=== PATIENT | female | born 2000 | race African-American/Black ===

== ENCOUNTER 2022-05-02 08:13 | Outpatient (CLI) | payer OTHER, SELFPAY ==
--- NOTE | ~2022-05-02 | MR_ITS ---
EXAMINATION: MR brain/brain stem wo/w con DATE: 05/02/2022 09:35 INDICATION: Seizure. TECHNIQUE: Magnetic resonance imaging (MRI) of the brain and brainstem was performed without and with 10 mL MultiHance intravenous contrast. COMPARISON: Head CT 01/08/2018 FINDINGS: The hippocampi are normal and symmetric. There is no intracranial hemorrhage, acute infarct ion, or abnormal intracranial mass lesion. The ventricles are normal in size. The orbits are normal. The paranasal sinuses are clear. The mastoid air cells are normal. IMPRESSION: 1. Normal brain. Reviewed, dictated and finalized at location A. IMPRESSION: 1. Normal brain.
[2022-05-02 08:59] LABS: Estimated Glomerular Filt Rate > 60
--- NOTE | 2022-05-03 08:51 | WPDNEUROLOGY ---
Neurology EEG Report General Information Date of Study: 05/02/22 TEST eeg DIAGNOSIS seizure CONDITION OF RECORDING awake ,drowsy and sleep EEG NUMBER [id number] CLINICAL HISTORY patient reports she had 1 seizure about 4 years ago and has not had any problems since then. EEG DESCRIPTION Basic resting occipital frequency consists of low to medium voltage 8 to 10 hertz per 2nd alpha activity. Low-voltage beta activity seen diffusely admixed with waxing and waning posterior alpha rhythm. Bilateral symmetrical sleep activity seen during sleep. Hyperventilation not done. Photic stimulation produces normal drive. Non paroxysmal. Nonfocal. Non lateralizing. IMPRESSION Normal record
== END 2022-05-02 08:14 | disposition home or self-care (01) ==
PROVIDERS: PCP Family Medicine; Visit Provider Psychiatry & Neurology Neurology
DX: R56.9 Unspecified convulsions (principal)
CPT/HCPCS: 70553; 95816; A9577

== ENCOUNTER → 2023-09-22 12:44 | Outpatient (CLI) | payer OTHER, SELFPAY ==
--- NOTE | ~2023-09-22 | US_ITS ---
EXAMINATION: US OB <= 14 weeks fetus DATE: 09/22/2023 13:07 INDICATION: with inconclusive viability. TECHNIQUE: Real-time transabdominal pelvic ultrasound was performed. COMPARISON: None. FINDINGS: The uterus measures 10.2 x 8.2 x 5.7 cm. There is an intrauterine gestational sac. The crown ru mp length measures 4.8 cm, which correlates with an estimated gestational age of 11 weeks and 4 day(s ) (+/-) 1 week(s) and 0 day(s). heart motion is identified measuring 163 beats per minute (bpm) by M-mode Doppler. The placenta is posterior. The ovaries are not visualized. There is no free fluid in the pelvis. IMPRESSION: 1. Single living intrauterine gestation with estimated date of delivery of 04/08/2024. Reviewed, dictated and finalized at location A. [employer] IMPRESSION: 1. Single living intrauterine gestation with estimated date of delivery of 03/23.
== END ==
PROVIDERS: PCP Registered Nurse; Visit Provider Registered Nurse
DX: O36.80X0 Pregnancy with inconclusive fetal viability, not applicable or unspecified (principal); Z3A.00 Weeks of gestation of pregnancy not specified
CPT/HCPCS: 76801

== ENCOUNTER 2023-12-17 13:50 | Emergency (ER) | payer OTHER, SELFPAY ==
--- NOTE | ~2023-12-17 | XR_ITS ---
EXAMINATION: XR chest 1V portable Exam Date/Time: 12/17/2023 16:20 [employer] HISTORY: right rib/CHEST pain X 3 WKS. 20 WKS Comparison: None. RESULT: Lines, tubes, and devices: None. Lungs and pleura: Clear. Cardiomediastinal silhouette: Normal. Other: No acute osseous or upper abdominal finding. IMPRESSION: No acute cardiopulmonary process. Reviewed, dictated and finalized at location K. S [facility]
[2023-12-17 13:53] VITALS: BP 119/68; PULSE 82; RESP 16; TEMP 36.3; O2SAT 100
--- NOTE | 2023-12-17 16:17 | ED.GENADULT ---
HPI - General Adult General Chief complaint: Unspecified Stated complaint: pain behind right ribs Time Seen by Provider: 12/17/23 14:48 History of Present Illness HPI narrative: 23-year-old female presenting to the emergency department for evaluation of right-sided rib pain. Patient is BRCA 24 weeks . Patient states she is having right lower rib pain that is worsened when she is laying or sitting down but symptoms improved when she stands. Patient denies any lower abdominal pain. Patient denies any uterine cramping, vaginal bleeding or vaginal discharge. Patient denies any falls or injuries. Related Data Allergies Allergy/AdvReac Type Severity Reaction Status Date / Time No Known Allergies Allergy Verified 09/20/23 13:58 Review of Systems Review of Systems: All systems reviewed & are unremarkable except as noted in HPI and below PMFSH Past Medical History Medical History History of seizure Family History Family History Father Previous back surgery Mother No problems noted. Sibling No problems noted. Social History Social History Social History: never smoker Smoking status: Never smoker Alcohol intake: never Substance use: never Lack of Transportation: No Lack of Food: Never True Current Housing: I Have Housing Concerned About Future Housing: No Difficulty Paying Gas/Electric Bills: No Difficulty Paying for Meds: No Currently Unemployed: No Education: Associate Degree Difficulty w/ Childcare or Family Care: No Living arrangements: with family Additional living arrangements comments: Takes care of great grandfather. Occupation/Education: occupation Additional occupation/education comments: Nurse Gender identity (if verbalized by the patient): Female Exam Narrative: APPEARANCE: Well appearing, no pain, no distress, well-nourished. HEAD: normocephalic, atraumatic. EYES: PERRLA/EOMI, conjunctivae clear. NOSE: Normal no drainage EARS:TMS clear with good light reflex. THROAT: Pharynx clear, no exudate. NECK: Supple. No adenopathy, no masses. RESPIRATORY: Airway patent, respirations nonlabored. Clear to auscultation bilaterally, no rales, rhonchi, wheezing. CARDIOVASCULAR: Regular rate and rhythm without murmurs rubs or gallops. ABDOMINAL: Soft, nontender, nondistended, normal bowel sounds MUSCULOSKELETAL: Reproducible tenderness over the patient's right lower rib, no abdominal tenderness NEURO: Alert. Cranial nerves II through XII intact. Grossly intact SKIN: Warm, dry. Normal Color Course Course Emergency Course: Patient was discharged to have close follow-up with OB Gyne Vital Signs Vital signs: Vital Signs Temperature 97.3 F L 12/17/23 13:53 Pulse Rate 82 12/17/23 13:53 Respiratory Rate 16 12/17/23 13:53 Blood Pressure 119/68 12/17/23 13:53 Pulse Oximetry 100 12/17/23 13:53 Temperature 97.3 F L 12/17/23 13:53 Pulse Rate 79 12/17/23 16:55 Respiratory Rate 20 12/17/23 16:55 Blood Pressure 118/71 12/17/23 16:55 Pulse Oximetry 100 12/17/23 16:55 Medical Decision Making MDM Narrative Medical decision making narrative: 23-year-old female presented emergency department for evaluation of right rib pain. Chest x-ray showed no acute finding. Patient's gravid abdomen does put pressure on her right lower ribs when she is in the sitting position but this pressure is relieved when patient is in the standing position since the baby rides lower into the pelvis. Suspect this is the etiology for the patient's pain. Patient was updated on results of the workup patient was comfortable with plan for close follow-up with her OB Gyne and primary care physician. All questions concerns were addressed. Differential Diagnosis Differential Diagno
[2023-12-17 16:55] VITALS: BP 118/71; PULSE 79; RESP 20; O2SAT 100
== END 2023-12-17 18:04 | disposition home or self-care (01) ==
PROVIDERS: Emergency Provider Emergency Medicine; PCP Registered Nurse
DX: O26.892 Other specified pregnancy related conditions, second trimester (principal); R07.81 Pleurodynia; Z15.01 Genetic susceptibility to malignant neoplasm of breast; Z3A.24 24 weeks gestation of pregnancy
CPT/HCPCS: 71045; 99283